=== PATIENT | female | born 1960 | race Caucasian/White ===

== ENCOUNTER → 2023-12-18 10:29 | Outpatient (BNVA) | payer MEDICARE, OTHER, SELFPAY | PROVIDERS: Family Provider Family Medicine; Visit Provider Internal Medicine | DX: E04.1 Nontoxic single thyroid nodule (principal); E04.2 Nontoxic multinodular goiter; C91.10 Chronic lymphocytic leukemia of B-cell type not having achieved remission; R49.0 Dysphonia; R13.10 Dysphagia, unspecified | CPT/HCPCS: 36415; 84439; 84443; 84480; 99204 ==

== ENCOUNTER → 2024-06-23 10:48 | Outpatient (BNVA) | payer MEDICARE, OTHER, SELFPAY | PROVIDERS: Family Provider Family Medicine; Visit Provider Internal Medicine | DX: E04.1 Nontoxic single thyroid nodule (principal); R13.10 Dysphagia, unspecified; E04.2 Nontoxic multinodular goiter; C91.10 Chronic lymphocytic leukemia of B-cell type not having achieved remission; R49.0 Dysphonia | CPT/HCPCS: 99214 ==